=== PATIENT | male | born 1975 | race African-American/Black ===

== ENCOUNTER 2025-07-02 21:53 | Emergency (ER) | payer SELFPAY ==
[~2025-07-02] VITALS: Ht 175.3 cm; Wt 154.0 kg
[2025-07-02 22:02] VITALS: O2SAT 97
[2025-07-02] MEDS: KETOROLAC 30MG/ML VIAL IM ONE (22:50)
[2025-07-03] MEDS ORDERED: IBUP-1455 MT (00:52)
[2025-07-03 01:05] VITALS: BP 158/86; PULSE 75; RESP 15; TEMP 36.7; O2SAT 100
== END 2025-07-03 01:09 | disposition home or self-care (01) ==
LOC: ER 21:53
DX: S39.012A Strain of muscle, fascia and tendon of lower back, initial encounter (principal); S70.02XA Contusion of left hip, initial encounter; I10 Essential (primary) hypertension; W18.30XA Fall on same level, unspecified, initial encounter; Y93.89 Activity, other specified; Y92.89 Other specified places as the place of occurrence of the external cause; Y99.8 Other external cause status
CPT/HCPCS: 99284; 73502; 72100; 96372; J1885